=== PATIENT | female | born 1990 | race Caucasian/White ===

== ENCOUNTER 2016-10-10 20:24 | Emergency (ER) | payer OTHER ==
[~2016-10-10] VITALS: Ht 162.6 cm; Wt 137.0 kg
[2016-10-10 21:00] VITALS: BP 155/86
--- NOTE | 2016-10-10 21:04 | PHYS DOC ---
Past Medical History Additional Past Medical Histor: prior syncopal episodes; thyroid nodule Additional Past Surgical Histo: none Smoking: Cigarettes Social History Narrative: Adult General Chief Complaint Chief Complaint: syncope COMPLAINTS HPI HPI Patient is a 26 year old female who presents with multiple complaints. 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 Since that time she did have a little bit of pain. She had an ultrasound scheduled on Wednesday and following that the pain increased. Tonight the pain is even worse, level of 7. There is no swelling noted. No change in the overlying skin. She also has been complaining of some sharp sided left chest pain today. No radiation of the pain. It is at a 7. Some mild shortness of breath. She flew to [place] September 17 and return September 24. She is not on oral contraceptives. She also had episode last night at 1900 p.m. while she was in the kitchen creatinine and "passed out" she hit the left side of her head. Had one episode of vomiting last night. Mild head pain since. Eyes and leg pain or swelling. No diarrhea. No urinary complaints. No numbness tingling to the arms or legs. No neck pain or back pain. Review of Systems Review of Systems Constitutional: Denies fever or chills Eyes: Denies change in visual acuity, redness, or eye pain HENT: Denies nasal congestion or sore throat. Neck pain on the left side. Respiratory: Denies cough but some mild shortness of breath Cardiovascular: sharp left sided chest pain. GI: Denies abdominal pain, bloody stools or diarrhea; one episode of nausea & vomiting after hitting head last night. : Denies dysuria or hematuria Musculoskeletal: Denies back pain or joint pain Integument: Denies rash or skin lesions Neurologic: Denies headache, focal weakness or sensory changes. Syncope last night. Current Medications Current Medications Current Medications Medications (Trade) Dose Ordered Sig/Nathalia Start Time Stop Time Status Last Admin Dose Admin Fentanyl Citrate (Fentanyl 2ml Vial) 50 mcg 1X ONCE 10/11/16 00:30 10/11/16 00:31 DC 10/11/16 00:03 50 MCG Ondansetron HCl (Zofran) 4 mg 1X ONCE 10/11/16 00:30 10/11/16 00:31 DC 10/11/16 00:03 4 MG Ringer's Solution 1,000 ml @ 100 mls/hr Q10H 10/10/16 21:30 10/11/16 00:54 DC 10/10/16 21:30 100 MLS/HR Allergies Allergies Allergies Coded Allergies Type Severity Reaction Last Updated Verified No Known Drug Allergies 10/10/16 No Physical Exam Physical Exam Constitutional: Well developed, well nourished, no acute distress, non-toxic appearance. HENT: Normocephalic, small swelling to the left forehead area at the scalp margin. No significant tenderness to palpation. TM clear bilaterally .hemotympanums, bilateral external ears normal, oropharynx moist, no oral exudates, nose normal. Eyes: PERRLA, EOMI, conjunctiva normal, no discharge. Neck: Normal range of motion, no tenderness of cervical spine, supple, no stridor. Tender over the left anterior neck thyroid area. No crepitance. Cardiovascular:Heart rate regular rhythm, tachycardic, no murmur Lungs & Thorax: Bilateral breath sounds clear to auscultation Abdomen: Bowel sounds normal, soft, no tenderness, no masses, no pulsatile masses. Skin: Warm, dry, no erythema, no rash. Back: No tenderness, no CVA tenderness. Extremities: No tenderness, no cyanosis, no clubbing, ROM intact, no edema. Neurologic: Alert and oriented X 3, normal motor function, normal sensory function, no focal deficits noted. Psychologic: Affect normal, judgement normal, mood normal. Current Patient Data Vital Signs Vital Signs Date Time Temp Pulse Resp B/P (MAP) Pulse Ox O2 Delivery O2 Flow Rate FiO2 10/10/16 21:00 98.7 120 18 155/86 (109) 96 Room Air 98.7 P 120; BP 155/86; sat 98% Lab Values Laboratory Tests Test 10/10/16 20:59 10/10/16 21:10 10/10/16 21:51 POC Urine HCG, Qualitative Hcg negative (Negative) White Blood Count 11.4 x10^3/uL (4.0-11.0) H Red Blood Count 4.66 x10^6/uL (3.50-5.40) Hemoglobin 13.5 g/dL (12.0-15.5) Hematocrit 40.1 % (36.0-47.0) Mean Corpuscular Volume 86 fL (79-100) Mean Corpuscular Hemoglobin 29 pg (25-35) Mean Corpuscular Hemoglobin Concent 34 g/dL (31-37) Red Cell Distribution Width 13.6 % (11.5-14.5) Platelet Count 265 x10^3/uL (140-400) Neutrophils (%) (Auto) 70 % (31-73) Lymphocytes (%) (Auto) 24 % (24-48) Monocytes (%) (Auto) 5 % (0-9) Eosinophils (%) (Auto) 1 % (0-3) Basophils (%) (Auto) 1 % (0-3) Neutrophils # (Auto) 8.0 x10^3uL (1.8-7.7) H Lymphocytes # (Auto) 2.7 x10^3/uL (1.0-4.8) Monocytes # (Auto) 0.5 x10^3/uL (0.0-1.1) Eosinophils # (Auto) 0.1 x10^3/uL (0.0-0.7) Basophils # (Auto) 0.1 x10^3/uL (0.0-0.2) D-Dimer ([place]) < 0.27 ug/mlFEU Sodium Level 141 mmol/L (136-145) Potassium Level 4.1 mmol/L (3.5-5.1) Chloride Level 104 mmol/L (98-107) Carbon Dioxide Level 30 mmol/L (21-32) Anion Gap 7 (6-14) Blood Urea Nitrogen 12 mg/dL (7-20) Creatinine 0.9 mg/dL (0.6-1.0) Estimated GFR (Cockcroft-Gault) 76.9 Glucose Level 139 mg/dL (70-99) H Calcium Level 9.4 mg/dL (8.5-10.1) Creatine Kinase 77 U/L (26-192) Creatine Kinase MB (Mass) < 0.5 ng/mL (0.0-3.6) Creatine Kinase MB Relative Index 0.6 % (0-4) Troponin I Quantitative < 0.017 ng/mL (0.000-0.055) RI-Luk-R-Type Natriuretic Peptide 9 pg/mL (0-124) Lipase 104 U/L (73-393) Thyroid Stimulating Hormone (TSH) 1.797 uIU/mL (0.358-3.74) Urine Collection Type Unknown Urine Color [place] Urine Clarity Clear Urine pH 5.5 Urine Specific [place] >=1.030 Urine Protein Negative mg/dL (NEG-TRACE) Urine Glucose (UA) Negative mg/dL (NEG) Urine Ketones (Stick) Negative mg/dL (NEG) Urine Blood Negative (NEG) Urine Nitrite Negative (NEG) Urine Bilirubin Small (NEG) Urine Urobilinogen Dipstick 0.2 mg/dL (0.2 mg/dL) Urine Leukocyte Esterase Negative (NEG) Urine RBC Occ /HPF (0-2) Urine WBC Occ /HPF (0-4) Urine Squamous Epithelial Cells Occ /LPF Urine Bacteria Many /HPF (0-FEW) Urine Mucus Marked /LPF Laboratory Tests 10/10/16 21:10 Laboratory Tests 10/10/16 21:10 EKG EKG EKG interpreted by myself. Time of EKG was at 20 1:16 PM. Heart rate was 102 with sinus tachycardia. There is no specific ST-T changes. Left stubbs axis noted. Radiology/Procedures Radiology/Procedures [facility] [address] [place], [place] [id number] IMAGING REPORT Signed PATIENT: KONRAD NORTON ACCOUNT: [id number] : 1990 LOCATION: ER AGE: 26 SEX: F EXAM STATUS: REG ER ORD. PHYSICIAN: GURPREET UPTON MD REASON: syncope PROCEDURE: CT HEAD WO CONTRAST CT of the head without contrast History:syncope, hx denies , no priors . No history of trauma or injury. Technique: Standard noncontrast images are obtained. Exposure: One or more of the following individualized dose reduction techniques were utilized for this examination: 1. Automated exposure control 2. Adjustment of the mA and/or kV according to patient size 3. Use of iterative reconstruction technique. Comparison: None Findings: Posterior fossa is unremarkable. No evidence of acute intracranial hemorrhage, mass effect, midline shift or abnormal extra-axial fluid collection. Corley-white matter distinction is intact. Ventricles unremarkable and symmetric Visualized orbits are unremarkable. Visualized paranasal sinuses and mastoids are clear. No acute calvarial abnormality Impression: No evidence of acute intracranial abnormality. Electronically signed by: Norberto King MD (10/10/2016 11:01 PM) [facility] DICTATED and SIGNED BY: NORBERTO KING MD DATE: 10/10/16 6202 CC: GURPREET UPTON MD; NON,STAFF ~ Course & Med Decision Making Course & Med Decision Making Pertinent Labs and Imaging studies reviewed. (See chart for details) My HEART SCORE History: Highly suspicious 2 points moderately suspicious 1. slightly suspicious 0 point EKG: ST segment depression 2. nonspecific repolarization disturbance 1. normal 0 point Age: Greater than 65 2 points, 65-45 1., less than 45 years old 0 points Risk factors:> 3 risk factors 2 points, 1-2 risk factors one point, no risk factors 0 point Troponin: > 2 times normal 2 points, 1-2 times normal 1., normal limits 0 point Total score: 0 Score % pts MACE/n MACE Policy 0-3 32% 1.9% 0.05% Discharge 4-6 51% 413/3136 13% 1.3% Observation Risk management 7-10 17% 518/1045 50% 2.8% Observation Treatment, CAGb Valuated patient on arrival to the room. She does have multiple complaints. Of note was the chest pain, syncope or recent travel. Will proceed with PE workup. Laboratory data was obtained for cardiac evaluation as well. In the process of having her thyroid evaluated well-documented TSH level. 2310 PM: CT results back and is negative. Home to f/u w PCP as scheduled. She needs to continue the evaluation re her thyroid Dragon Disclaimer Dragon Disclaimer This electronic medical record was generated, in whole or in part, using a voice recognition dictation system. Departure Departure Impression: Primary Impression: Neck pain on left side Additional Impression: Chest pain Disposition: HOME, SELF-CARE Condition: GOOD Patient Instructions: Chest Pain (Nonspecific) Additional Instructions: CONTINUE WITH YOUR EVALUATION OF YOUR THYROID PER YOUR DOCTOR Problem Qualifiers Additional Impression: Chest pain Chest pain type: unspecified Qualified Codes: R07.9 - Chest pain, unspecified GURPREET UPTON MD Oct 10, 2016 21:04
[2016-10-10 21:22] LABS: BASO # 0.1 x10^3/uL (0.0-0.2); BASO % 1 % (0-3); EOS % 1 % (0-3); HEMATOCRIT 40.1 % (36.0-47.0); HEMOGLOBIN 13.5 g/dL (12.0-15.5); LYMPH # 2.7 x10^3/uL (1.0-4.8); LYMPH % 24 % (24-48); MEAN CORPUSCULAR HEMOGLOBIN 29 pg (25-35); MEAN CORPUSCULAR HGB CONC 34 g/dL (31-37); MEAN CORPUSCULAR VOLUME 86 fL (79-100); MONO % 5 % (0-9); NEUT % 70 % (31-73); PLATELET COUNT 265 x10^3/uL (140-400); RED BLOOD COUNT 4.66 x10^6/uL (3.50-5.40); RED CELL DISTRIBUTION WIDTH 13.6 % (11.5-14.5); WHITE BLOOD COUNT 11.4 x10^3/uL (4.0-11.0)
[2016-10-10] MEDS ORDERED: IV RINGERS,LACTATED 1000ML 1,000 ML IV SCH (21:30)
[2016-10-10 21:34] LABS: CALCIUM 9.4 mg/dL (8.5-10.1); CREATININE 0.9 mg/dL (0.6-1.0); GFR 76.9; POTASSIUM 4.1 mmol/L (3.5-5.1)
--- NOTE | 2016-10-10 21:55 | EKG ---
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
[2016-10-10 22:02] LABS: CREATINE KINASE 77 U/L (26-192)
[2016-10-10 22:03] LABS: CKMB MASS < 0.5 ng/mL (0.0-3.6)
[2016-10-10 22:04] LABS: BILIRUBIN,URINE SMALL (NEG); GLUCOSE,URINE NEGATIVE (NEG); NITRITE,URINE NEGATIVE (NEG); PH,URINE 5.5; PROTEIN,URINE NEGATIVE (NEG-TRACE); UROBILINOGEN,URINE 0.2 mg/dL (0.2 mg/dL)
[2016-10-10 22:44] LABS: BACTERIA,URINE MANY /HPF (0-FEW); RBC,URINE OCC /HPF (0-2); WBC,URINE OCC /HPF (0-4)
[2016-10-10 22:45] LABS: SQUAMOUS EPITHELIAL CELL,UR OCC /LPF
--- NOTE | 2016-10-10 23:04 | RAD ---
CT of the head without contrast History:syncope, hx denies , no priors . No history of trauma or injury. Technique: Standard noncontrast images are obtained. Exposure: One or more of the following individualized dose reduction techniques were utilized for this examination: 1. Automated exposure control 2. Adjustment of the mA and/or kV according to patient size 3. Use of iterative reconstruction technique. Comparison: None Findings: Posterior fossa is unremarkable. No evidence of acute intracranial hemorrhage, mass effect, midline shift or abnormal extra-axial fluid collection. Corley-white matter distinction is intact. Ventricles unremarkable and symmetric Visualized orbits are unremarkable. Visualized paranasal sinuses and mastoids are clear. No acute calvarial abnormality Impression: No evidence of acute intracranial abnormality. Electronically signed by: Norberto King MD (10/10/2016 11:01 PM) [email or web address]
[2016-10-11] MEDS ORDERED: fentaNYL PF VIAL 100 MCG/2 ML VIAL IM ONE (00:30)
[2016-10-11] MEDS ORDERED: ONDANSETRON PF 4 MG/2 ML VIAL. IV ONE (00:30)
== END 2016-10-11 00:54 | disposition home or self-care (01) ==
LOC: ER 20:24
DX: R07.9 Chest pain, unspecified (principal); M54.2 Cervicalgia; R06.02 Shortness of breath; R51 Headache; F17.210 Nicotine dependence, cigarettes, uncomplicated
CPT/HCPCS: 36415; 70450; 80048; 81001; 81025; 82550; 82553; 83690; 83880; 84436; 84443; 84484; 85027; 85379; 93005; 96361; 96372; 96374; 99285; J2405; J3010; J7120